=== PATIENT | male | born 1950 | race African-American/Black ===

== ENCOUNTER 2022-02-14 17:29 | Emergency (ER) | payer OTHER ==
[~2022-02-14] VITALS: Ht 188 cm; Wt 73.0 kg
[~2022-02-14 17:29] MED LIST: OTC MED
[2022-02-14 20:29] LABS: CHLORIDE 102 mEq/L (98-107)
[2022-02-14 20:31] LABS: HEMATOCRIT. 41.4 % (42.0-52.0); HEMOGLOBIN. 13.5 g/dL (14.0-18.0); MEAN CORPUSCULAR HEMOGLOBIN 28.3 pg (28.0-32.0); MEAN CORPUSCULAR VOLUME 86.8 fL (80.0-94.0); MEAN PLATELET VOLUME 7.9 fl (7.4-10.4); PLATELET 191 x1000/uL (130-400); RED BLOOD CELL COUNT 4.77 mill/uL (4.7-6.1); RED CELL DISTRIBUTION WIDTH 14.3 % (11.6-14.6)
[2022-02-14 20:53] LABS: INR 1.1; PROTHROMBIN TIME 11.4 sec (9.6-11.0)
[2022-02-14 21:32] LABS: CLARITY URINE CLEAR (CLEAR); COLOR URINE YELLOW (YELLOW); KETONES URINE 2+ (NEGATIVE); LEUKOCYTE ESTERASE URINE 1+ (NEGATIVE); NITRITE URINE NEGATIVE (NEGATIVE); OCCULT BLOOD URINE 2+ (NEGATIVE); PROTEIN URINE TRACE (NEGATIVE); SPECIFIC GRAVITY URINE 1.023 (1.005-1.030)
[2022-02-14 22:01] LABS: PLATELET ESTIMATE NORMAL
[2022-02-14] MEDS ORDERED: PHEN-815 MT (22:02)
[2022-02-14] MEDS ORDERED: CEPH500C2 MT (22:02)
[2022-02-14] MEDS ORDERED: IBUP-2028 MT (22:02)
[2022-02-14 22:18] VITALS: BP 134/69
== END 2022-02-14 22:20 | disposition home or self-care (01) ==
LOC: ER 17:29
DX: N30.90 Cystitis, unspecified without hematuria (principal); Z98.890 Other specified postprocedural states
CPT/HCPCS: 36415; 80053; 81003; 85025; 99283

== ENCOUNTER 2023-11-19 23:03 | Emergency (ER) | payer OTHER ==
[~2023-11-19] VITALS: Ht 185.4 cm; Wt 75.0 kg
[~2023-11-19 23:03] MED LIST changes: +CEPH500C2 MT; +IBUP-2028 MT; +PHEN-815 MT
[2023-11-19 23:48] VITALS: BP 128/72; PULSE 60; RESP 18; O2SAT 100
[2023-11-20 01:00] VITALS: TEMP 98.5
[2023-11-20] MEDS: ACETAMINOPHEN 325MG TABLET PO ONE (01:00)
[2023-11-20] MEDS ORDERED: CEPH500T MT (02:19)
[2023-11-20] MEDS: TETANUS, DIPHTHERIA, PERTUSSIS VAC/PF 0.5ML (>10YR OLD) IM ONE (02:30)
== END 2023-11-20 03:17 | disposition home or self-care (01) ==
LOC: ER 23:17
DX: S61.230A Puncture wound without foreign body of right index finger without damage to nail, initial encounter (principal); E78.00 Pure hypercholesterolemia, unspecified; X58.XXXA Exposure to other specified factors, initial encounter; Y93.89 Activity, other specified; Y92.89 Other specified places as the place of occurrence of the external cause; Y99.8 Other external cause status
CPT/HCPCS: 73140; 90471; 90715; 99283